=== PATIENT | female | born 1950 | race Hispanic/Latino ===

== ENCOUNTER 2022-09-06 14:33 | Outpatient (CLI) | payer MEDICARE, OTHER | END 2022-09-06 14:34 | disposition home or self-care (01) | LOC: SCSRAD 14:33 | PROVIDERS: ATTEND Nurse Practitioner Family | DX: M79.645 Pain in left finger(s) (principal); M19.042 Primary osteoarthritis, left hand; M19.032 Primary osteoarthritis, left wrist ==